=== PATIENT | female | born 1960 ===

== ENCOUNTER → 2017-03-12 | Outpatient (CLI) | payer OTHER | LOC: BMCIMAGING 13:25 | PROVIDERS: ATTEND Podiatrist Foot & Ankle Surgery | DX: M19.072 Primary osteoarthritis, left ankle and foot (principal); M61.572 Other ossification of muscle, left ankle and foot; M20.11 Hallux valgus (acquired), right foot; M21.41 Flat foot [pes planus] (acquired), right foot; M21.42 Flat foot [pes planus] (acquired), left foot ==

== ENCOUNTER → 2017-03-16 | Outpatient (CLI) | payer OTHER | LOC: BMCIMAGING 10:57 | PROVIDERS: ATTEND Orthopaedic Surgery Hand Surgery | DX: M99.71 Connective tissue and disc stenosis of intervertebral foramina of cervical region (principal); M79.645 Pain in left finger(s); M25.512 Pain in left shoulder ==

== ENCOUNTER → 2017-09-05 | Outpatient (CLI) | payer OTHER | LOC: FIMAGING 15:50 | PROVIDERS: ATTEND Podiatrist Foot & Ankle Surgery | DX: M25.872 Other specified joint disorders, left ankle and foot (principal); M12.872 Other specific arthropathies, not elsewhere classified, left ankle and foot; R60.0 Localized edema ==

== ENCOUNTER → 2018-04-26 | Outpatient (CLI) | payer OTHER | LOC: FIMAGING 10:42 | PROVIDERS: ATTEND Internal Medicine | DX: Z13.820 Encounter for screening for osteoporosis (principal); M81.0 Age-related osteoporosis without current pathological fracture; Z78.0 Asymptomatic menopausal state; M50.322 Other cervical disc degeneration at C5-C6 level; M53.82 Other specified dorsopathies, cervical region; M48.02 Spinal stenosis, cervical region ==